=== PATIENT | female | born 1995 | race Hispanic/Latino ===

== ENCOUNTER 2016-06-30 09:13 | Outpatient (CLI) | payer BC ==
--- NOTE | 2016-06-30 13:14 | Cat Scan Report ---
CT of the abdomen and pelvis with IV and oral contrast. History: Right upper quadrant pain. Findings: The liver, spleen, pancreas, and gallbladder are normal. The kidneys are normal in size and configuration. No renal masses or hydronephrosis are seen. There is no adenopathy within the retroperitoneum. There no pelvic masses or abnormal fluid collections. The uterus and adnexal regions are unremarkable. There is no free air. The appendix is normal. Impression: Negative study.
== END 2016-06-30 09:14 | disposition home or self-care (01) ==
LOC: SPVIMAG 09:13
PROVIDERS: ATTEND Family Medicine
DX: R10.11 Right upper quadrant pain (principal)
CPT/HCPCS: 74177; Q9967